=== PATIENT | male | born 1985 | race Caucasian/White ===

== ENCOUNTER 2017-03-06 12:20 | Emergency (ER) | payer BC ==
[2017-03-06] MEDS ORDERED: ONDANSETRON *ODT* 4 MG TABLET SL ONE (12:27)
[2017-03-06] MEDS ORDERED: SODIUM CHLORIDE 1,000 ML IV STA (12:27)
[2017-03-06 12:34] VITALS: BMI 29.7
[2017-03-06] MEDS ORDERED: ONDANSETRON 4 MG/2 ML VIAL IVPUSH ONE (12:35)
[2017-03-06] MEDS ORDERED: ONDANSETRON 4 MG/2 ML VIAL ONE (12:37)
[2017-03-06] MEDS ORDERED: ONDANSETRON *ODT* 4 MG TABLET ONE (12:37)
[2017-03-06 12:45] LABS: BASOPHIL 0.5 % (0-2.0); EOSINOPHIL 1.6 % (0-4.5); MCH 28.3 pg (25.7-33.7); MCHC 34.8 g/dl (32.0-35.9); MEAN CELL VOLUME 81.5 fl (80-96); MEAN PLT VOLUME 6.7 fl (7.5-11.1); NEUTROPHILS 62.7 % (42.8-82.8); PLATELET COUNT 244 K/MM3 (134-434); RDW 13.1 % (11.9-15.9); WHITE BLOOD COUNT 7.2 K/mm3 (4.0-10.0)
[2017-03-06 12:57] LABS: INR 1.1 (0.82-1.09); PROTHROMBIN TIME (PATIENT) 12.1 SEC (9.98-11.88)
[2017-03-06 13:12] LABS: ALBUMIN 4.4 g/dl (3.4-5.0); ALK PHOS 58 U/L (45-117); ANION GAP 10 (8-16); BILIRUBIN,TOTAL 0.5 mg/dL (0.2-1.0); CALCIUM 9.4 mg/dL (8.5-10.1); CO2 26 mmol/L (21-32); CREATININE 1.3 mg/dL (0.7-1.3); GLUCOSE,RANDOM 99 mg/dL (74-106); MAGNESIUM 2.1 mg/dL (1.8-2.4); SGOT/AST 16 U/L (15-37); SGPT/ALT 29 U/L (12-78)
[2017-03-06 13:14] LABS: CPK 104 IU/L (39-308); TROPONIN I < 0.02 ng/ml (0.00-0.05)
[2017-03-06] MEDS ORDERED: LISINOPRIL 10 MG TABLET (FP) PO ONE ×2 (13:48→15:38)
--- NOTE | 2017-03-06 14:04 | PDOC ---
History of Present Illness - General Chief Complaint: Lightheaded Stated Complaint: dizziness Time Seen by Provider: 03/06/17 12:26 History Source: Patient Exam Limitations: No Limitations - History of Present Illness Initial Comments: 03/06/17 13:07 31-year-old male presents to the ED with complaints of sudden onset of nausea accompanied with lightheadedness and diaphoresis. Patient states was going to work and while ambulating his symptoms began. Patient is currently a resident here at [facility] and immediately had his blood pressure checked by a coworker reading of 151/110 with a heart rate of 110. Patient with the chest pain, headache, visual changes, abdominal pain, palpitations, or difficulty breathing. Patient denies recent travel or recent illness. Patient does state history of hypertension and dyslipidemia with recent change in medication from an SHEREEN inhibitor / hydrochlorothiazide to Maxide/hydrochlorothiazide 4 days ago by his PCP. Patient denies recent illness but states did lose approximately 20 pounds in the last few months which he attributes to relocating from [place] to [place]. Patient denies smoking history, drug use or excessive alcohol use. Timing/Duration: constant Severity: moderate Associated Symptoms: reports: diaphoresis, nausea/vomiting, weakness Past History - Travel Traveled outside of the country in the last 30 days: No - Past Medical History Allergies/Adverse Reactions: Allergies Allergy/AdvReac Type Severity Reaction Status Date / Time No Known Allergies Allergy Unverified 03/06/17 12:34 Home Medications: Ambulatory Orders Atorvastatin Calcium 10 mg PO HS 03/06/17 HTN: Yes Hypercholesterolemia: Yes - Psycho/Social/Smoking Cessation Hx Suicidal Ideation: No Smoking History: Never smoked Information on smoking cessation initiated: No Hx Alcohol Use: No Drug/Substance Use Hx: No Substance Use Type: None Patient Lives Alone: No Lives with/in: spouse/SO Review of Systems - Review of Systems Able to Perform ROS?: Yes Constitutional: Yes: Weakness HEENTM: No: Symptoms Reported Respiratory: No: Symptoms reported Cardiac (ROS): Yes: Lightheadedness ABD/GI: Yes: Nausea : No: Symptoms Reported Musculoskeletal: No: Symptoms Reported Integumentary: No: Symptoms Reported Neurological: No: Symptoms reported Endocrine: No: Symptoms Reported Hematologic/Lymphatic: No: Symptoms Reported *Physical Exam - Vital Signs Last Vital Signs Temp Pulse Resp BP Pulse Ox 98.4 F 83 18 139/100 98 03/06/17 12:32 03/06/17 13:11 03/06/17 12:32 03/06/17 13:11 03/06/17 12:45 - Physical Exam General Appearance: Yes: Nourished, Appropriately Dressed, Mild Distress ( initially ) HEENT: positive: EOMI Neck: positive: Normal Thyroid, Supple. negative: Other (no jvd) Respiratory/Chest: positive: Lungs Clear, Normal Breath Sounds. negative: Respiratory Distress, Accessory Muscle Use Cardiovascular: positive: Regular Rhythm, Regular Rate. negative: Murmur Gastrointestinal/Abdominal: negative: Distended, Tenderness Extremity: negative: Pedal Edema Integumentary: positive: Pale, Diaphoresis Neurologic: positive: Motor Strength 5/5 (ambulatory) Heart Score/ECG Review - History History: Slightly suspicious - Electrocardiogram EKG: Normal - Age Age: </= 45 - Risk Factors Risk Factors Heart Score: Yes Hx Hypercholesterolemia, Yes Hx Hypertension Based on the list above the patient has:: 1-2 risk factors - Troponin Troponin: </= normal limit - Score Heart Score - Total: 1 - ECG Intrepretation Rhythm: Regular Rhythm (Rate 98. left atrial enlargement. QTC [address] depression or elevation) ED Treatment Course - LABORATORY CBC & Chemistry Diagram: 03/06/17 12:35 03/06/17 12:35 - ADDITIONAL ORDERS Additional order review: Laboratory Results 03/06/17 03/06/17 03/06/17 12:35 12:35 12:35 INR 1.10 Sodium 139 Potassium 3.9 Chloride 103 Carbon Dioxide 26 Anion Gap 10 BUN 16 Creatinine 1.3 Creat Clearance w eGFR > 60 Random Glucose 99 Calcium 9.4 Magnesium 2.1 Total Bilirubin 0.5 AST 16 ALT 29 Alkaline Phosphatase 58 D Creatine Kinase 104 Troponin I < 0.02 Total Protein 8.0 Albumin 4.4 03/06/17 12:35 RBC 5.46 MCV 81.5 MCHC 34.8 RDW 13.1 MPV 6.7 L Neutrophils % 62.7 Lymphocytes % 27.5 Monocytes % 7.7 Eosinophils % 1.6 Basophils % 0.5 - RADIOLOGY Radiology Studies Ordered: Category Date Time Status CHEST X-RAY PORTABLE* [RAD] Stat Radiology 03/06/17 12:27 Completed - Medications Given in the ED: ED Medications Discontinued Medications Generic Name Dose Route Start Last Admin Trade Name Osito PRN Reason Stop Dose Admin Sodium Chloride 1,000 mls @ 1,000 mls/hr 03/06/17 12:27 03/06/17 12:42 Normal Saline - IV 03/06/17 13:26 1,000 mls/hr ASDIR STA Administration Ondansetron HCl 4 mg 03/06/17 12:27 03/06/17 12:35 Zofran Odt - SL 03/06/17 12:28 4 mg ONCE ONE Administration Ondansetron HCl 4 mg 03/06/17 12:35 03/06/17 12:42 Zofran Injection IVPUSH 03/06/17 12:36 4 mg ONCE ONE Administration Medical Decision Making - Medical Decision Making 03/06/17 13:08 Patient history of hypertension and dyslipidemia recently with medication adjustment presents with sudden onset of diaphoresis, weakness, and nausea. Patient initially given sublingual Zofran to control the nausea along with IV access , EKG , cardiac monitoring and was found to be slightly orthostatic. Patient was ordered for IV fluids, TSH, mag, chest x-ray and cardiac workup. Differential -ACS versus fluid volume depletion versus metabolic abnormality. 03/06/17 13:11 Patient given a second dose of Zofran ivp after he complained of nausea upon sitting upright for chest x-ray. Patient pending urine. 03/06/17 14:13 Patient states feeling better when sitting up. Patient currently sitting at the side of the bed eating a lunch and discussed with him to stop the Maxzide and to restart the lisinopril. Patient will be told to take the lisinopril 10 mg tonight and then to restart his lisinopril/hydrochlorothiazide tomorrow afternoon going back into the a.m. schedule come Friday morning. Repeat blood pressure 130/92 with a heart rate of 74. Patient also is to notify his PCP and discuss today's visit. Patient has been given a copy of his labs. Chest x-ray negative. We will await urine results. 03/06/17 15:23 Laboratory Tests 03/06/17 03/06/17 12:35 12:35 TSH 2.21 Urine Ketones Negative Urine Nitrite Negative Ur Leukocyte Esterase Negative 03/06/17 15:24 Laboratory Tests 0903/06/17 03/06/17 12:35 12:35 12:35 WBC 7.2 Hgb 15.5 Hct 44.5 Plt Count 244 Neutrophils % 62.7 INR 1.10 Sodium Potassium Chloride Carbon Dioxide Anion Gap BUN Creatinine Random Glucose Calcium Magnesium AST ALT Creatine Kinase 104 Troponin I < 0.02 TSH 03/06/17 03/06/17 12:35 12:35 WBC Hgb Hct Plt Count Neutrophils % INR Sodium 139 Potassium 3.9 Chloride 103 Carbon Dioxide 26 Anion Gap 10 BUN 16 Creatinine 1.3 Random Glucose 99 Calcium 9.4 Magnesium 2.1 AST 16 ALT 29 Creatine Kinase Troponin I TSH 2.21 Patient is able to the ER but still complaining of mild dizziness with ambulation along with nausea. 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 Patient's repeat vital stable. Patient understands to return to the ED if symptoms worsen or develops any chest pain, headache, or other acute findings. *DC/Admit/Observation/Transfer Diagnosis at time of Disposition: Dizziness, Nausea - Discharge Dispostion Disposition: HOME Condition at time of disposition: Good - Referrals Referrals: Trenton Porras MD [Primary Care Provider] - - Patient Instructions Printed Discharge Instructions: DI for Dizziness-Nonvertigo, DI for Nausea -- Adult Additional Instructions: At this time I do recommend you take your lisinopril 10 mg tonight rest, and continue previous medication regimen of lisinopril/hydrochlorothiazide tomorrow afternoon then returning to the a.m. routine. Please return to the ED at any given time if his symptoms worsen and please contact your PCP of today's ER visit
[2017-03-06 14:12] LABS: URINE APPEARANCE CLEAR; URINE BILIRUBIN NEGATIVE (NEGATIVE); URINE BLOOD NEGATIVE (NEGATIVE); URINE COLOR STRAW; URINE GLUCOSE (UA) NEGATIVE (NEGATIVE); URINE KETONE NEGATIVE (NEGATIVE); URINE LEUK ESTERASE NEGATIVE (NEGATIVE); URINE NITRITE NEGATIVE (NEGATIVE); URINE PROTEIN NEGATIVE (NEGATIVE); URINE UROBILINOGEN NEGATIVE mg/dL (0.2-1.0)
--- NOTE | 2017-03-06 14:12 | EKG ---
Test Reason : Blood Pressure : / mmHG Vent. Rate : 098 BPM Atrial Rate : 098 BPM P-R Int : 158 ms QRS Dur : 082 ms QT Int : 376 ms P-R-T Axes : 035 025 037 degrees QTc Int : 480 ms NORMAL SINUS RHYTHM POSSIBLE LEFT ATRIAL ENLARGEMENT PROLONGED QT ABNORMAL ECG NO PREVIOUS ECGS AVAILABLE Confirmed by SUNNY TAPIA, MARK ([id number]) on 03/06/2017 2:11:41 PM Referred By: Confirmed By:MARK CORREA MD
[2017-03-06 14:54] VITALS: BP 139/97; PULSE 80; TEMP 98
[2017-03-06] MEDS ORDERED: LISINOPRIL 5 MG TABLET (FP) ONE (15:50)
== END 2017-03-06 15:52 | disposition home or self-care (01) ==
LOC: JER 12:20
PROC: 3E033GC Introduction of Other Therapeutic Substance into Peripheral Vein, Percutaneous Approach (ICD-10-PCS; principal; 2017-03-06)
DX: R42 Dizziness and giddiness (principal); I10 Essential (primary) hypertension; E78.00 Pure hypercholesterolemia, unspecified
CPT/HCPCS: 36415; 71010-TC; 80053; 81003; 83735; 84443; 84484; 85025; 85610; 93005; 93010; 99285-25